=== PATIENT | male | born 1985 | race Caucasian/White ===

== ENCOUNTER 2020-04-14 17:38 | Inpatient (IN) | payer SELFPAY ==
[~2020-04-14 17:38] MED LIST: EPHEDRINE 25 MG/5 ML SYRINGE ONE; Iopamidol-370 76% 500 ML 1 ML ONE; Lidocaine 1% PF 5 ML VIAL ONE; PHENYLEPHRINE-NS 100 MCG/ML 10 ML SYRINGE ONE; PROPOFOL 200 MG/20 ML VIAL ONE; Succinylcholine Chloride 20 MG/ML 10 ml SYRINGE FS ONE
[2020-04-14] MEDS ORDERED: CEFAZOLIN 1 GM VIAL ONE (17:53)
[2020-04-14] MEDS ORDERED: Adacel (T-DAP) 0.5 ML SYRINGE ONE (17:53)
[2020-04-14 17:56] LABS: #Basophils 0.1 thou/uL (0.0-0.2); #Eosinphils 1.2 thou/uL (0.0-0.7); #Lymphocytes 2.4 thou/uL (1.20-3.40); #Monocytes 0.7 thou/uL (0.11-0.59); #Neutrophils 7.6 thou/uL (1.40-6.50); %Basophils 0.9 % (0.0-1.0); %Eosinophils 9.7 % (0.0-10.0); %Monocytes 5.8 % (0.0-10.0); %Neutrophils 63.6 % (42.0-75.0); Hemoglobin 14.7 g/dL (14.0-18.0); Mean Corpuscular Hemoglobin 33.9 pg (27.0-31.0); Mean Corpuscular Volume 99.5 fL (78.0-98.0); Mean Platelet Volume 7.2 fL (7.4-10.4); Platelet Count 224 thou/uL (130-400); RBC Distribution Width 11.6 % (11.5-14.5); Red Blood Cell (RBC) Count 4.34 mill/uL (4.70-6.10); White Blood Cell (WBC) Count 11.9 thou/uL (4.8-10.8)
[2020-04-14 18:04] LABS: PTT 25.6 sec (22.9-36.1); Prothrombin Time 12.9 sec (12.0-14.7)
[2020-04-14] MEDS ORDERED: Fentanyl 100 MCG/2 ML VIAL ONE ×4 (18:06→22:17)
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
[2020-04-14 18:16] LABS: ALT (SGPT) 25 U/L (8-55); AST (SGOT) 45 U/L (5-34); Albumin 4.2 g/dL (3.5-5.0); Alkaline Phosphatase 65 U/L (40-110); Anion Gap 14 mmol/L (10-20); BUN (Urea Nitrogen) 12 mg/dL (8.9-20.6); Bilirubin, Total 0.3 mg/dL (0.2-1.2); Calc. Creatinine Clearance 0 mL/min (70-130); Calcium 8.5 mg/dL (7.8-10.44); Carbon Dioxide 18 mmol/L (22-29); Chloride 108 mmol/L (98-107); Estimated GFR-MDRD 85; Globulin 2.7 g/dL (2.4-3.5); Glucose 104 mg/dL (70-105); Potassium 3.5 mmol/L (3.5-5.1); Protein, Total 6.9 g/dL (6.0-8.3); Sodium 136 mmol/L (136-145)
[2020-04-14 18:17] LABS: Acetaminophen Less than 6.0 mcg/mL (10.0-30.0); Alcohol 63 mg/dL (Less than 10); Salicylate Less than 8.0 mg/dL (15.0-30.0)
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
[2020-04-14 19:03] LABS: Bilirubin Negative (Negative); Blood, Urine Negative (Negative); Clarity Clear (Clear); Glucose, Urine (Dipstick) Normal (Negative); Leukocyte Negative Leu/uL (Negative); Nitrite Negative (Negative); Protein, Urine (Dipstick) Negative (Neg-Trace); Urobilinogen Normal mg/dL (Less than 2)
[2020-04-14] MEDS ORDERED: Bacitracin 1 PK ONE (19:10)
[2020-04-14 19:12] LABS: Medtox Reader # READER 4
[2020-04-14 19:13] LABS: Amphetamine Detected (NotDetected); Barbiturates Screen Not Detected (NotDetected); Benzodiazepine Screen Not Detected (NotDetected); Cocaine Metabolite Screen Not Detected (NotDetected); Medtox Control Line Valid? VALID (VALID); Methadone Not Detected (NotDetected); Methamphetamine Detected (NotDetected); Opiate Screen Detected (NotDetected); Oxycodone Screen Not Detected (NotDetected); Phencyclidine (PCP) Not Detected (NotDetected); THC/Cannabinoid Screen Detected (NotDetected); Tricyclic Screen Not Detected (NotDetected)
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
[2020-04-14] MEDS ORDERED: Promethazine HCl 25 MG/ML VIAL IM PRN (21:43)
[2020-04-14] MEDS ORDERED: Ketorolac Tromethamine 30 MG/ML VIAL IVP PRN (21:43)
[2020-04-14] MEDS ORDERED: HYDROmorphone 2 MG/ML VIAL SLOW IVP PRN (21:43)
[2020-04-14] MEDS ORDERED: Promethazine HCl 25 MG/ML VIAL SLOW IVP PRN (21:43)
[2020-04-14] MEDS ORDERED: Meperidine HCl/PF 25 MG/ML VIAL SLOW IVP PRN (21:43)
[2020-04-14] MEDS ORDERED: Ondansetron HCl/PF 4 MG/2 ML Vial IVP PRN (21:43)
[2020-04-14] MEDS ORDERED: Ketorolac Tromethamine 30 MG/ML VIAL ONE (21:45)
[2020-04-14] MEDS ORDERED: HYDROmorphone 0.5 MG/0.5 ML SYRINGE ONE (21:45)
[2020-04-14] MEDS ORDERED: Ondansetron PF 4 MG/2 ML Vial ONE (21:45)
[2020-04-14] MEDS ORDERED: Dextrose 50% Abboject 50 ML SYRINGE SLOW IVP PRN (21:55)
[2020-04-14] MEDS ORDERED: Ondansetron PF 4 MG/2 ML Vial IVP PRN (21:55)
[2020-04-14] MEDS ORDERED: Dextrose 5% in Water 1,000 ML IV PRN (21:55)
[2020-04-14] MEDS ORDERED: Ondansetron ODT 4 MG TAB PO PRN (21:55)
[2020-04-14] MEDS ORDERED: hydrALAZINE 20 MG/ML VIAL SLOW IVP PRN (21:55)
[2020-04-14] MEDS ORDERED: Ibuprofen 800 MG TAB PO SCH (22:00)
[2020-04-14] MEDS ORDERED: Famotidine 20 MG TAB PO SCH (22:15)
[2020-04-15] MEDS: CEFAZOLIN 2 GM in Premix Bag 1 BAG IVPB SCH ×3 (00:59→14:40)
[2020-04-15] MEDS: Oxazepam 10 MG CAP PO SCH ×4 (01:04→21:19)
[2020-04-15] MEDS: traMADol HCl 50 MG TAB PO SCH ×5 (01:09→23:01)
[2020-04-15] MEDS: Acetaminophen 500 MG TAB PO SCH ×5 (01:10→23:01)
[2020-04-15] MEDS: Sodium Chloride 0.9% 1,000 ML IV SCH ×2 (01:16→06:01)
[2020-04-15 01:32] VITALS: BMI 21.2
[2020-04-15 05:29] LABS: #Eosinphils 0.3 thou/uL (0.0-0.7); #Lymphocytes 1.4 thou/uL (1.20-3.40); #Monocytes 0.5 thou/uL (0.11-0.59); #Neutrophils 3.5 thou/uL (1.40-6.50); %Basophils 0.7 % (0.0-1.0); %Eosinophils 5.8 % (0.0-10.0); %Monocytes 9.2 % (0.0-10.0); %Neutrophils 60.3 % (42.0-75.0); Hemoglobin 11.4 g/dL (14.0-18.0); Mean Corpuscular HGB CONC 33.5 g/dL (32.0-36.0); Mean Corpuscular Hemoglobin 33.6 pg (27.0-31.0); Mean Platelet Volume 7.2 fL (7.4-10.4); Platelet Count 169 thou/uL (130-400); RBC Distribution Width 11.5 % (11.5-14.5); Red Blood Cell (RBC) Count 3.38 mill/uL (4.70-6.10); White Blood Cell (WBC) Count 5.8 thou/uL (4.8-10.8)
[2020-04-15 05:41] LABS: Anion Gap 9 mmol/L (10-20); BUN (Urea Nitrogen) 12 mg/dL (8.9-20.6); Calc. Creatinine Clearance 112 mL/min (70-130); Carbon Dioxide 23 mmol/L (22-29); Chloride 106 mmol/L (98-107); Estimated GFR-MDRD 90; Glucose 103 mg/dL (70-105); Potassium 3.9 mmol/L (3.5-5.1); Sodium 134 mmol/L (136-145)
[2020-04-15] MEDS: Ibuprofen 600 MG TAB PO SCH ×3 (06:00→21:19)
[2020-04-15] MEDS: Thiamine 100 MG TAB PO SCH (09:29)
[2020-04-15] MEDS: Folic Acid 1 MG TAB PO SCH (09:29)
[2020-04-15] MEDS: Famotidine 20 MG TAB PO SCH ×2 (09:29→21:19)
[2020-04-15] MEDS: traMADol HCl 50 MG TAB PO PRN ×2 (12:12→18:01)
[2020-04-15] MEDS: Cyclobenzaprine 10 MG TAB PO PRN (14:40)
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
[2020-04-15] MEDS: ceFAZolin 1 GM/D5W 1 GM in Premix Bag 1 BAG IVPB SCH (23:02)
[2020-04-16] MEDS: Ibuprofen 600 MG TAB PO SCH ×2 (06:24→12:56)
[2020-04-16] MEDS: Acetaminophen 500 MG TAB PO SCH ×2 (06:24→12:56)
[2020-04-16] MEDS: Oxazepam 10 MG CAP PO SCH ×2 (06:24→12:56)
[2020-04-16] MEDS: traMADol HCl 50 MG TAB PO SCH ×2 (06:24→12:57)
[2020-04-16] MEDS: ceFAZolin 1 GM/D5W 1 GM in Premix Bag 1 BAG IVPB SCH ×2 (06:25→15:30)
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
[2020-04-16] MEDS: Thiamine 100 MG TAB PO SCH (10:11)
[2020-04-16] MEDS: Famotidine 20 MG TAB PO SCH (10:11)
[2020-04-16] MEDS: Folic Acid 1 MG TAB PO SCH (10:11)
[2020-04-16] MEDS: Cyclobenzaprine 10 MG TAB PO PRN (10:11)
[2020-04-16 16:13] VITALS: BP 106/71; TEMP 97.9
== END 2020-04-16 17:41 | disposition home or self-care (01) | DRG 482 ==
LOC: ERS 17:38 → SDC 19:20 → SURG A 23:35
PROVIDERS: ADMIT Specialist; ATTEND Specialist
PROC: 0QS806Z Reposition Right Femoral Shaft with Intramedullary Internal Fixation Device, Open Approach (ICD-10-PCS; principal; 2020-04-14)
DX: S72.361 Displaced segmental fracture of shaft of right femur (principal); S06.0X0A Concussion without loss of consciousness, initial encounter; V49.9XXA Car occupant (driver) (passenger) injured in unspecified traffic accident, initial encounter; Y92.411 Interstate highway as the place of occurrence of the external cause; F15.10 Other stimulant abuse, uncomplicated; F12.10 Cannabis abuse, uncomplicated
CPT/HCPCS: 36415; 70450; 71045; 71260; 72125; 72170; 74177; 80048; 80053; 80306; 80307; 81003; 85025; 85610; 85730; 90471; 90715; 96365; 96374; 96376; C1713; C1769; G0390; J0690; J1170; J1885; J2001; J2405; J2704; J3010; Q9967